=== PATIENT | female | born 1990 | race Caucasian/White ===

== ENCOUNTER → 2024-10-31 10:22 | Outpatient (REF) | payer BC, SELFPAY | LOC: REG 10:22 | PROVIDERS: ATTENDING PHYSICIAN Advanced Practice Midwife; FAMILY PHYSICIAN Physician Assistant Medical | DX: O09.523 Supervision of elderly multigravida, third trimester (principal); Z34.90 Encounter for supervision of normal pregnancy, unspecified, unspecified trimester | CPT/HCPCS: 36415; 86850; 86900; 86901; J2790 ==

== ENCOUNTER → 2024-11-12 11:23 | Outpatient (REF) | payer BC, SELFPAY | LOC: PNTC 11:23 | PROVIDERS: ATTENDING PHYSICIAN Student in an Organized Health Care Education/Training Program | DX: Z34.90 Encounter for supervision of normal pregnancy, unspecified, unspecified trimester (principal) | CPT/HCPCS: 96372 ==

== ENCOUNTER → 2024-12-25 13:54 | Outpatient (REF) | payer BC, SELFPAY | LOC: PNTC 13:54 | PROVIDERS: ATTENDING PHYSICIAN Advanced Practice Midwife | DX: O48.0 Post-term pregnancy (principal) | CPT/HCPCS: 59025; 76815 ==

== ENCOUNTER 2024-12-31 03:24 | Inpatient (IN) | payer BC, SELFPAY ==
[2024-12-31] MEDS: LR 1000 IV ×2 (03:30→06:12)
[2024-12-31 03:39] VITALS: BMI 30.4
[2024-12-31 03:40] VITALS: BMI 30.4
[2024-12-31 03:54] LABS: % Basophils 0.5 % (0-2); % Eosinophils 1.2 % (0-6); % Immature Granulocytes 1.2 % (0-0.5); % Lymphocytes 13.5 % (20.5-51.1); % Monocytes 5.7 % (1.7-9.3); % Neutrophils 77.9 % (42.2-75.2); Absolute Basophils 0.1 10^3/uL (0-0.2); Absolute Eosinophils 0.1 10^3/uL (0-0.7); Absolute Immature Granulocytes 0.1 10^3/uL (0-0.05); Absolute Lymphocytes 1.6 10^3/uL (1.2-3.4); Absolute Monocytes 0.7 10^3/uL (0.1-0.6); Absolute Neutrophils 8.9 10^3/uL (1.4-6.5); Hematocrit 34.7 % (37.0-47.0); Hemoglobin 12.1 g/dL (12.0-16.0); Mean Corp Hgb Conc. 34.9 g/dL (33.0-37.0); Mean Corpuscular Hgb 30.2 pg (27.0-31.0); Mean Corpuscular Volume 86.5 fL (81.0-99.0); Mean Platelet Volume 10.1 fL (7.4-10.4); Nucleated Red Blood Cells % 0 %; Platelet Count 176 10^3/uL (130-400); Red Blood Cell Count 4.01 10^6/uL (4.20-5.40); Red Cell Dist. Width 12.4 % (11.5-14.5); White Blood Cell Count 11.5 10^3/uL (4.8-10.8)
[2024-12-31] MEDS: PENICILLIN 110 UNITS IV (04:05)
[2024-12-31] MEDS: SUBLIMAZE 100 MCG EPIDURAL (04:23)
[2024-12-31] MEDS: FENTANYL/BUPIVACAINE 100 EPIDURAL (04:25)
[2024-12-31] MEDS: TUMS CHEWABLE TABLET 400 MG PO (07:02)
[2024-12-31] MEDS: PENICILLIN 55 UNITS IV (07:49)
[2024-12-31 11:10] VITALS: BP 116/58
[2024-12-31] MEDS: MOTRIN 600 MG PO (20:13)
[2024-12-31] MEDS: TYLENOL 650 MG PO (20:14)
[2025-01-01] MEDS: MOTRIN 600 MG PO ×2 (04:53→12:05)
[2025-01-01] MEDS: TYLENOL 650 MG PO (04:53)
[2025-01-01 05:09] LABS: Hematocrit 29.8 % (37.0-47.0); Hemoglobin 10.2 g/dL (12.0-16.0)
[2025-01-01] MEDS: SENOKOT-S 1 TABLET PO (08:50)
[2025-01-02 14:05] LABS: Syphilis/T. pallidum Ab Reflex Negative (Negative)
== END 2025-01-01 15:47 | disposition home or self-care (01) | DRG 807 ==
LOC: LDRP 03:24
PROVIDERS: Obstetrics & Gynecology; ADMITTING PHYSICIAN Advanced Practice Midwife; ATTENDING PHYSICIAN Obstetrics & Gynecology
PROC: 0KQM0ZZ Repair Perineum Muscle, Open Approach (ICD-10-PCS; 2024-12-31)
PROC: 10E0XZZ Delivery of Products of Conception, External Approach (ICD-10-PCS; 2024-12-31)
DX: O48.0 Post-term pregnancy (principal); Z37.0 Single live birth; Z3A.41 41 weeks gestation of pregnancy; O70.1 Second degree perineal laceration during delivery
CPT/HCPCS: 36415; 85014; 85018; 85025; 86780; 86850; 86870; 86900; 86901; 86920; 86922; 87491; 87591

== ENCOUNTER 2025-06-22 06:54 | Outpatient (RCR) | payer BC, SELFPAY | END 2025-06-22 23:59 | disposition home or self-care (01) | LOC: RPT 06:54 | PROVIDERS: ATTENDING PHYSICIAN Advanced Practice Midwife; FAMILY PHYSICIAN Physician Assistant Medical | DX: N81.89 Other female genital prolapse (principal); N39.3 Stress incontinence (female) (male); M54.50 Low back pain, unspecified; M25.552 Pain in left hip; M62.81 Muscle weakness (generalized); Z73.6 Limitation of activities due to disability | CPT/HCPCS: 97163; 97530 ==

== ENCOUNTER 2025-08-14 11:20 | Outpatient (RCR) | payer BC, SELFPAY | END 2025-08-14 23:59 | disposition home or self-care (01) | LOC: RPT 11:20 | PROVIDERS: ATTENDING PHYSICIAN Advanced Practice Midwife; FAMILY PHYSICIAN Physician Assistant Medical | DX: N81.89 Other female genital prolapse (principal); N39.3 Stress incontinence (female) (male); M54.50 Low back pain, unspecified; M25.552 Pain in left hip; M62.81 Muscle weakness (generalized); Z73.6 Limitation of activities due to disability | CPT/HCPCS: 97014; 97110; 97112; 97530 ==